=== PATIENT | male | born 1975 | race Caucasian/White ===

== ENCOUNTER 2021-10-04 15:35 | Emergency (ER) | payer SELFPAY ==
[~2021-10-04] VITALS: Ht 165.1 cm; Wt 78.0 kg
[2021-10-04 16:23] VITALS: BP 103/65
== END 2021-10-04 21:40 | disposition left against medical advice (07) ==
LOC: ER 15:35
DX: Z53.21 Procedure and treatment not carried out due to patient leaving prior to being seen by health care provider (principal)